=== PATIENT | male | born 1980 | race Caucasian/White ===

== ENCOUNTER 2018-06-25 00:31 | Emergency (ER) | payer SELFPAY ==
[2018-06-25] MEDS ORDERED: HALOPERIDOL LACTATE INJ 5 MG/1 ML VIAL ONE (01:32)
[2018-06-25] MEDS ORDERED: LORAZEPAM INJ 2 MG/1 ML VIAL ONE (01:33)
[2018-06-25] MEDS ORDERED: DIPHENHYDRAMINE HCL 50 MG/ML VIAL ONE (01:33)
[2018-06-25] MEDS ORDERED: DIPHENHYDRAMINE HCL 50 MG/ML VIAL IM ONE (01:40)
[2018-06-25] MEDS ORDERED: LORAZEPAM INJ 2 MG/1 ML VIAL IM ONE (01:41)
[2018-06-25] MEDS ORDERED: HALOPERIDOL LACTATE INJ 5 MG/1 ML VIAL IM ONE (01:41)
--- NOTE | 2018-06-25 01:55 | ER Document Report ---
Addendum entered and electronically signed by BRODERICK OSCAR MD 06/25/18 16:07: Discharge - Discharge Clinical Impression: Alcohol abuse, Suicidal ideations, Deliberate self-cutting Condition: Fair Disposition: HOME, SELF-CARE Additional Instructions: You have been evaluated and assessed at [facility] Emergency Department by both the medical and behavioral health teams after presenting for suicide and are now deemed appropriate for discharge. While in the ED, you received an initial medical screening, lab work, EKG, medications, direct staff observation, clinical evaluation, physician assessment, and outpatient resources. You were cleared from both services Mobile crisis resources were provided to you for when these situations arise. You are encouraged to develop positive coping skills through outpatient counseling and to stop using drugs and alcohol. A list of local substance abuse counselors were provide to you. You are also encouraged to follow up with your outpatient mental health provider at the [place] this Tuesday06/29/18 and maintain compliance with your prescribed medication. DEPRESSION: Your evaluation reveals that you have mental depression. While symptoms may be vague, they often include disturbance of sleep, fatigue, loss of appetite, and general loss of interest in life. While depression may be a side effect of drugs, or a reaction to a major change in your life, many cases have no known cause. If depression is acute, and related to a major loss in your life, you can expect it to clear completely with time. If you have been depressed a long time, are prone to repeated bouts of depression or low mood, or have been thinking of suicide, get help. Depression can be treated with anti-depressant medication and counselling. Long-term depression will often take a few weeks to clear, even with appropriate medication. Follow-up care is important. SUICIDAL IDEATION: Suicidal ideation is a common medical term for thoughts about suicide, which may be as detailed as a formulated plan, without the suicidal act itself. Although most people who undergo suicidal ideation do not commit suicide, some go on to make suicide attempts. The range of suicidal ideation varies greatly from fleeting to detailed planning, role playing, and unsuccessful attempts. While thoughts about suicide are common, most people do not carry out serious actions to commit suicide. Based upon your evaluation and discussion with you, we do not believe you are currently at risk to act upon your thoughts of suicide. You have agreed to return to the Emergency Department, at any time, if you feel inclined to act upon your suicidal thoughts. FOLLOW-UP CARE: If you have been referred to a physician for follow-up care, call the physicians office for an appointment as you were instructed or within the next two days. If you experience worsening or a significant change in your symptoms, notify the physician immediately or return to the Emergency Department at any time for re-evaluation. Referrals: [facility] [Provider Group] - Follow up as needed [facility] [Provider Group] - Follow up as needed Addendum entered and electronically signed by BRODERICK OSCAR MD 06/25/18 16:04: Discharge - Discharge Clinical Impression: Alcohol abuse, Suicidal ideations, Deliberate self-cutting Condition: Fair Original Note: ED General - General TRAVEL OUTSIDE OF THE [place] IN LAST 30 DAYS: No <DORY RAMIRES - Last Filed: 06/25/18 03:43> <BRODERICK OSCAR - Last Filed: 06/25/18 15:47> - General Chief Complaint: Suicidal Ideation Stated Complaint: SUICIDAL THOUGHTS Time Seen by Provider: 06/25/18 00:39 Notes: Patient is a 37-year-old male with history of depression, anxiety and PTSD that presents to the emergency department for chief complaint of suicidal ideation. EMS was called by the patient's , patient was locked into the house, he was intoxicated, and he had cut his wrist, this is the third attempt according to EMS that the patient has had recently, and he goes to the [place] apparently, and states that the not helping him. At this time however the patient is rather agitated, he was brought in by police, and is not wanting to cooperate, saying expletives, and states that we will not be able to help him, and is combative with police officers and security. Past Medical History: PTSD, depression, anxiety Past Surgical History: Not obtainable at this time Social History: Positive for alcohol use and tobacco use. Family History: Reviewed and noncontributory for presenting illness Allergies: Reviewed, see documented allergy list. REVIEW OF SYSTEMS: Complete review of systems is not obtainable at this time as the patient is rather combative and not wanting to answer questions PHYSICAL EXAMINATION: Vital signs reviewed, nursing noted reviewed. GENERAL: Patient is intoxicated and combative with security and staff HEAD: Atraumatic, normocephalic. EYES: Eyes appear normal, sclera anicteric, conjunctiva are normal. ENT: Moist mucous membranes. NECK: Normal range of motion, supple without lymphadenopathy LUNGS: Breath sounds clear to auscultation bilaterally and equal. No wheezes rales or rhonchi. HEART: Heart rate tachycardic, regular rhythm EXTREMITIES: Nontender, good range of motion, no pitting or edema. There are superficial lacerations noted to the wrist bilaterally. NEUROLOGICAL: No focal neurological deficits. Moves all extremities spon taneously Motor and sensory grossly intact on exam. Ambulatory PSYCH: Patient is agitated and combative with staff SKIN: Warm, Dry, normal turgor, (DORY RAMIRES) - Related Data Allergies/Adverse Reactions: No Known Allergies Allergy (Unverified 06/25/18 02:12) Past Medical History - Social History Smoking Status: Unknown if Ever Smoked Family History: Reviewed & Not Pertinent <BRODERICK OSCAR - Last Filed: 06/25/18 15:47> - Vital signs Vitals: Pulse Resp BP Pulse Ox 103 H 20 137/88 H 97 06/25/18 00:35 06/25/18 00:35 06/25/18 00:35 06/25/18 00:35 Course - Laboratory Result Diagrams: 06/25/18 01:50 06/25/18 01:50 <DORY RAMIRES - Last Filed: 06/25/18 03:43> - Laboratory Result Diagrams: 06/25/18 01:50 06/25/18 06:45 <BRODERICK OSCAR - Last Filed: 06/25/18 15:47> - Re-evaluation Re-evalutation: Patient was seen and examined, was combative with police officers and staff in the hospital, IVC paperwork was filled out as the patient did have intentional lacerations to his wrist, and apparently per EMS made suicidal threats, patient had to be restrained, and was given IM Haldol 5 mg, IM Ativan 2 mg, and IM Benadryl 50 mg. Patient was more calm after medications, blood work was obtained, demonstrated a bicarb of 10, and alcohol of 197, low bicarb and metabolic acidosis most likely secondary to the patient being violent and wrestled by multiple officers and staff, leading to intermittent lactic acidosis, will hydrate the patient and repeat this in the morning, cannot medically clear at this time. Patient was reevaluated, and was resting and sleeping, will attempt to slowly remove restraints wanted to time to see if the patient will remain cooperative. (DORY RAMIRES) - Vital Signs Vital signs: Temp Pulse Resp BP Pulse Ox 103 H 20 137/88 H 97 06/25/18 00:35 06/25/18 00:35 06/25/18 00:35 06/25/18 00:35 - Laboratory Laboratory results interpreted by me: 06/25/18 06/25/18 01:50 06:45 Chloride 111 H 113 H Carbon Dioxide 10 L* 20 L D Anion Gap 24 H Total Protein 8.8 H Albumin 5.2 H Salicylates < 1.0 L Acetaminophen < 10 L Discharge <DORY RAMIRES - Last Filed: 06/25/18 03:43> <BRODERICK OSCAR - Last Filed: 06/25/18 15:47> - Discharge Clinical Impression: Alcohol abuse, Suicidal ideations, Deliberate self-cutting Condition: Fair
[2018-06-25 02:04] LABS: ABSOLUTE BASOPHILS # (AUTO) 0.1 10^3/uL (0.0-0.2); ABSOLUTE EOSINOPHILS # (AUTO) 0.3 10^3/uL (0.0-0.6); ABSOLUTE LYMPHOCYTES (AUTO) 2.9 10^3/uL (0.5-4.7); ABSOLUTE MONOCYTES (AUTO) 0.5 10^3/uL (0.1-1.4); ABSOLUTE NEUT (AUTO) 6.2 10^3/uL (1.7-8.2); BASOPHILS % (AUTO) 1.2 % (0-2); EOSINOPHILS % (AUTO) 3.3 % (0-6); HEMATOCRIT 46.4 % (37.9-51.0); HEMOGLOBIN 16.1 g/dL (13.5-17.0); LYMPHOCYTES % (AUTO) 28.7 % (13-45); MEAN CORPUSCULAR HEMOGLOBIN 31.5 pg (27.0-33.4); MEAN CORPUSCULAR HGB CONC 34.6 g/dL (32.0-36.0); MEAN CORPUSCULAR VOLUME 91 fl (80-97); MONOCYTES % (AUTO) 5.1 % (3-13); PLATELET COUNT 231 10^3/uL (150-450); RED CELL DISTRIBUTION WIDTH 13.5 % (11.5-14.0); SEGMENTED NEUTROPHILS % (AUTO) 61.7 % (42-78); TOTAL CELLS COUNTED % (AUTO) 100 %
[2018-06-25 02:16] LABS: ALANINE AMINOTRANSFERASE 48 U/L (21-72); ALBUMIN 5.2 g/dL (3.5-5.0); ALCOHOL 197 mg/dL (NONE DETECTED); ALKALINE PHOSPHATASE 117 U/L (38-126); ASPARTATE AMINO TRANSFERASE 45 U/L (17-59); BILIRUBIN,DIRECT 0.3 mg/dL (0.0-0.4); BILIRUBIN,TOTAL 0.4 mg/dL (0.2-1.3); BLOOD UREA NITROGEN 13 mg/dL (7-20); CALCIUM 9.8 mg/dL (8.4-10.2); GLUCOSE 108 mg/dL (75-110); POTASSIUM 4.4 mmol/L (3.6-5.0); TOTAL PROTEIN 8.8 g/dL (6.3-8.2)
[2018-06-25 02:21] LABS: ACETAMINOPHEN < 10 ug/mL (10-30); CHLORIDE 111 mmol/L (98-107); SALICYLATE < 1.0 mg/dL (2.0-20.0); SODIUM 144.5 mmol/L (137-145)
[2018-06-25 02:23] LABS: ANION GAP 24 (5-19); CARBON DIOXIDE 10 mmol/L (22-30)
[2018-06-25] MEDS ORDERED: NORMAL SALINE 1000 ML 1,000 ML IV ONE ×2 (02:25→03:43)
[2018-06-25 07:18] LABS: ANION GAP 10 (5-19); BLOOD UREA NITROGEN 13 mg/dL (7-20); CALCIUM 8.5 mg/dL (8.4-10.2); CHLORIDE 113 mmol/L (98-107); GLUCOSE 97 mg/dL (75-110); POTASSIUM 4.6 mmol/L (3.6-5.0); SODIUM 142.9 mmol/L (137-145)
[2018-06-25 07:33] LABS: CARBON DIOXIDE 20 mmol/L (22-30)
--- NOTE | 2018-06-25 08:34 | EKG REPORT ---
SEVERITY:- NORMAL ECG - SINUS RHYTHM ST ELEV, PROBABLE NORMAL EARLY REPOL PATTERN : Confirmed by: Oswald Pedraza MD 25-Jun-2018 08:33:41
--- NOTE | 2018-06-25 08:34 | EKG REPORT ---
SEVERITY:- ABNORMAL ECG - SINUS RHYTHM PROBABLE INFERIOR INFARCT, AGE INDETERMINATE : Confirmed by: Oswald Pedraza MD 25-Jun-2018 08:33:26
--- NOTE | 2018-06-25 09:19 | ER Document Report ---
Addendum entered and electronically signed by TOÑA TORRES LPCA 06/25/18 16:03: Discharge - Discharge Clinical Impression: Alcohol abuse, Suicidal ideations, Deliberate self-cutting Disposition: HOME, SELF-CARE Additional Instructions: You have been evaluated and assessed at [facility] Emergency Department by both the medical and behavioral health teams after presenting for suicide and are now deemed appropriate for discharge. While in the ED, you received an initial medical screening, lab work, EKG, medications, direct staff observation, clinical evaluation, physician assessment, and outpatient resources. You were cleared from both services Mobile crisis resources were provided to you for when these situations arise. You are encouraged to develop positive coping skills through outpatient counseling and to stop using drugs and alcohol. A list of local substance abuse counselors were provide to you. You are also encouraged to follow up with your outpatient mental health provider at the [place] this Tuesday06/29/18 and maintain compliance with your prescribed medication. DEPRESSION: Your evaluation reveals that you have mental depression. While symptoms may be vague, they often include disturbance of sleep, fatigue, loss of appetite, and general loss of interest in life. While depression may be a side effect of drugs, or a reaction to a major change in your life, many cases have no known cause. If depression is acute, and related to a major loss in your life, you can expect it to clear completely with time. If you have been depressed a long time, are prone to repeated bouts of depression or low mood, or have been thinking of suicide, get help. Depression can be treated with anti-depressant medication and counselling. Long-term depression will often take a few weeks to clear, even with appropriate medication. Follow-up care is important. SUICIDAL IDEATION: Suicidal ideation is a common medical term for thoughts about suicide, which may be as detailed as a formulated plan, without the suicidal act itself. Although most people who undergo suicidal ideation do not commit suicide, some go on to make suicide attempts. The range of suicidal ideation varies greatly from fleeting to detailed planning, role playing, and unsuccessful attempts. While thoughts about suicide are common, most people do not carry out serious actions to commit suicide. Based upon your evaluation and discussion with you, we do not believe you are currently at risk to act upon your thoughts of suicide. You have agreed to return to the Emergency Department, at any time, if you feel inclined to act upon your suicidal thoughts. FOLLOW-UP CARE: If you have been referred to a physician for follow-up care, call the physicians office for an appointment as you were instructed or within the next two days. If you experience worsening or a significant change in your symptoms, notify the physician immediately or return to the Emergency Department at any time for re-evaluation. Referrals: [facility] [Provider Group] - Follow up as needed [facility] [Provider Group] - Follow up as needed Course - Vital Signs Vital signs: Temp Pulse Resp BP Pulse Ox 103 H 20 137/88 H 97 06/25/18 00:35 06/25/18 00:35 06/25/18 00:35 06/25/18 00:35 - Laboratory Result Diagrams: 06/25/18 01:50 06/25/18 06:45 Laboratory results interpreted by me: 06/25/18 06/25/18 01:50 06:45 Chloride 111 H 113 H Carbon Dioxide 10 L* 20 L D Anion Gap 24 H Total Protein 8.8 H Albumin 5.2 H Salicylates < 1.0 L Acetaminophen < 10 L Physical Exam - Vital signs Vitals: Pulse Resp BP Pulse Ox 103 H 20 137/88 H 97 06/25/18 00:35 06/25/18 00:35 06/25/18 00:35 06/25/18 00:35 Original Note: Doctor's Note Notes: 06/25/18 09:17 37-year-old male with past medical history of depression, anxiety, posttraumatic stress disorder, with suicidal ideations, alcohol intoxication, cutting his wrist. Patient was partially very aggravated and needed to be restrained by police last evening. Vital signs as recorded. Labs as recorded. Awaiting psych evaluation. 06/25/18 15:45 The psychology/psychiatry team is seen and assessed the patient. They do not believe that the patient is a threat to himself or others at this time. Patient has been taking all his medications. Alcohol level when he arrived as recorded. He denies any suicidal homicidal ideations at this time. He denies any auditory or visual hallucinations. We have called and contacted his who states that the patient knows he should not be drinking. The patient also admits he should not be drinking. He will attempt to abstain. Patient has an appointment this Tuesday with his psychologist at the [place]. The is very comfortable with the patient going home. The patient is desiring going home. We have cleaned and dressed the patient's superficial abrasion to his left wrist. The states that she is the only one with a costa to the guns.
[2018-06-25 13:30] LABS: APPEARANCE,URINE TURBID; BILIRUBIN,URINE NEGATIVE (NEGATIVE); COLOR,URINE AMBER; GLUCOSE, URINE NEGATIVE (NEGATIVE); KETONES,URINE NEGATIVE (NEGATIVE); LEUKOCYTE ESTERASE,URINE NEGATIVE (NEGATIVE); NITRITE,URINE NEGATIVE (NEGATIVE); PROTEIN,URINE NEGATIVE (NEGATIVE); URINE SPECIFIC GRAVITY 1.019; UROBILINOGEN,URINE NEGATIVE mg/dL (<2.0)
[2018-06-25 13:40] LABS: URINE AMPHETAMINES SCREEN UNCONFIRMED POSITIVE; URINE BARBITURATES SCREEN NEGATIVE; URINE BENZODIAZEPINES SCREEN NEGATIVE; URINE COCAINE SCREEN NEGATIVE; URINE MARIJUANA (THC) SCREEN UNCONFIRMED POSITIVE; URINE METHADONE SCREEN NEGATIVE; URINE PHENCYCLIDINE SCREEN NEGATIVE
--- NOTE | 2018-06-25 16:02 | PSYCHOLOGICAL NOTE ---
Psych Note - Psych Note Date seen by psych provider: 06/25/18 Time seen by psych provider: 08:00 Psych Note: Reason for consult: Contact Permissions: Patient is a 37-year-old male with history of depression, anxiety and PTSD that presents to the emergency department for chief complaint of suicidal ideation. EMS was called by the patient's , patient was locked into the house, he was intoxicated, and he had cut his wrist, this is the third attempt according to E MS Calista Prince, He drank too much and doesn't handle his alcohol well. 4-5 glasses of wine at the event. Did not argue to her recollection I drank too much. Got up to get the dogs on front porch with a bottle of liquor crown maybe. tried to take the bottle. he said they'll be here soon. 2011 pills. He was cut. She didn't call award clerk but they arrived. Chip Applying Machine Tender lost him. No statements to kill self at all "this was a surprise" Patient is alert and oriented x . Mood is with affect. Patient denies/endorses SI, HI, and AV/H, does not appear to be responding to internal stimuli, and no delusions were noted. Conversational speech was WNL for rate, tone, and prosody. Eye contact was maintained. Thought processes were linear, organized, and rational. Intellectual abilities were estimated within the average range. Attention/concentration was WNL while, insight, judgment, and impulse control were . Diagnosis: Medication recommendations as per psychiatric provider, Dr. Chopra are as follows: No medication recommendations at this time. Impression/Plan: Patient is psychiatrically clear from acute psychiatric services as there is no risk of harm to self or others aeb patient denies SI, states he just drank too much and called [facility] for help. Patient and recommended to follow up with his MH provider Dr. Whiteside at the [place] on Tuesday for his regularly scheduled appointment. Patient is recommended to engage in S/A treatment as well, and was given education and contact information for [facility]. Patient's keeps the guns locked and has the only costa, will provide additional monitoring and support and ensure that patient follows up with his provider. Consulted Dr. Alves in the care and treatment of this patient and ED physician who is in agreement with disposition and recommendation.
[2018-06-25 16:14] VITALS: BP 127/78
== END 2018-06-25 16:13 | disposition home or self-care (01) ==
LOC: ER 00:31
DX: S61.519A Laceration without foreign body of unspecified wrist, initial encounter (principal); F10.10 Alcohol abuse, uncomplicated; X78.9XXA Intentional self-harm by unspecified sharp object, initial encounter; Y92.009 Unspecified place in unspecified non-institutional (private) residence as the place of occurrence of the external cause; F17.200 Nicotine dependence, unspecified, uncomplicated
CPT/HCPCS: 93005; 99285; 96372; 96360; 36415; 80307 ×4; 85025; 80048; 80053; 81001; 93010; J1200; J1630; J2060; J7030

== ENCOUNTER 2018-08-10 12:20 | Emergency (ER) | payer OTHER ==
--- NOTE | 2018-08-10 14:40 | ER Document Report ---
ED Skin Rash/Insect Bite/Abscs - General Chief Complaint: Abscess Stated Complaint: POSSIBLE ABSCESS Time Seen by Provider: 08/10/18 14:28 Mode of Arrival: Ambulatory Information source: Patient TRAVEL OUTSIDE OF THE [place] IN LAST 30 DAYS: No - HPI Patient complains to provider of: Other - CYST Notes: Patient here with complaints of cyst to his back. He has had a cyst to his upper back since January. He saw the [facility] for this and they did nothing for it at that time. Few days ago it was somewhat sore and he was able to express some white material from it. He denies any pain today. He talked to the [facility] about this and he was and told to have that reevaluated. No fever. No pain. No drainage at this time. No nausea, vomiting, diarrhea. No redness. No chest pain or shortness of breath. No nausea, vomiting, diarrhea. No diabetes. He denies any other complaints at this time. - Related Data Allergies/Adverse Reactions: No Known Allergies Allergy (Verified 08/10/18 14:06) Past Medical History - Social History Smoking Status: Current Every Day Smoker Frequency of alcohol use: Social Drug Abuse: None Family History: Reviewed & Not Pertinent Patient has suicidal ideation: No Patient has homicidal ideation: No Renal/ Medical History: Denies: Hx Peritoneal Dialysis Psychiatric Medical History: Reports: Hx Depression Past Surgical History: Reports: Hx Orthopedic Surgery - right hand Review of Systems - Review of Systems -: Yes All other systems reviewed and negative Physical Exam - Vital signs Vitals: Temp Pulse Resp BP Pulse Ox 97.9 F 72 18 144/88 H 95 08/10/18 12:43 08/10/18 12:43 08/10/18 12:43 08/10/18 12:43 08/10/18 12:43 - Notes Notes: GENERAL: alert, cooperative, nontoxic, no distress. HEAD: normocephalic, atraumatic EYES: conjunctiva pink without discharge, no external redness or swelling. EARS: no external swelling, no external redness NOSE: atraumatic, no external swelling MOUTH/THROAT: mucous membranes moist and pink NECK: soft, supple, full range of motion, no meningismus. CHEST: no distress, lungs clear and equal throughout. No wheezing, rales, rhonchi. CARDIAC: regular rate and rhythm, no murmur, normal capillary refill, normal pulses. BACK: full range of motion, no CVA tenderness. EXTREMITIES: full range of motion of all extremities. No redness, no swelling. NEURO: alert and oriented 3, no focal deficits, full range of motion of all extremities. PYSCH: appropriate mood, affect. Patient is cooperative. SKIN: pink, warm, dry, no rash. Small sebaceous cyst to the upper back. There is a small opening and a small amount of white caseous material was able to be expressed from this area. It is nontender, there is no surrounding redness. Course - Re-evaluation Re-evalutation: 08/10/18 14:37 Patient nontoxic-appearing with stable vitals. Patient here with complaints of cyst to his upper back that is been there since January. A few days ago get slightly tender he was able to express some white smelly material from it. On exam he is noted to have a sebaceous cyst with a small hole. I was able to gently express a small amount of white caseous cystic material from the area. There is no surrounding redness, cyst nontender, there is no obvious signs of infection at this time. This point I do not believe that an I&D would be indicated as the patient will likely need to follow-up with surgery or dermatology to have the actual cyst removed if it is bothering him. We will discharge him home on Keflex since there is a small opening to the area to hopefully prevent infection. He was instructed to apply warm compresses to the sore area. Follow-up with primary care, general surgery, dermatology at the next available appointment. Follow-up sooner for worsening pain, fever, redness, pain, persistent vomiting, or for any further concerns. The patient's emergency department workup and current diagnosis were explained to the patient and or family. Follow-up instructions were provided. Medications if prescribed were discussed. Instructions for when to return to the emergency department including specific worrisome symptoms were discussed with the patient and/or family. - Vital Signs Vital signs: Temp Pulse Resp BP Pulse Ox 97.9 F 72 18 144/88 H 95 08/10/18 12:43 08/10/18 12:43 08/10/18 12:43 08/10/18 12:43 08/10/18 12:43 Discharge - Discharge Clinical Impression: Sebaceous cyst Condition: Stable Disposition: HOME, SELF-CARE Instructions: Abscess ([facility]) Additional Instructions: Take medication as prescribed. Tylenol Motrin as needed for pain. Apply warm compresses to the sore area. Follow-up with dermatology or surgery for potential removal of the sebaceous cyst. Follow-up sooner for worsening pain, fever, redness, green drainage, or any further concerns. Prescriptions: Cephalexin Monohydrate [Keflex 500 mg Capsule] 500 mg PO Q6H 5 Days capsule Forms: Elevated Blood Pressure, Smoking Cessation Education Referrals: JORDEN GORDON DO [ACTIVE STAFF] - Follow up as needed SYLVAIN CALHOUN MD [ACTIVE PROVISIONAL STAFF] - Follow up as needed MIRLANDE FERNANDES MD [ACTIVE STAFF] - Follow up as needed
[2018-08-10 14:47] VITALS: BP 136/84
== END 2018-08-10 14:44 | disposition home or self-care (01) ==
LOC: ER 12:20
DX: L72.3 Sebaceous cyst (principal); F17.200 Nicotine dependence, unspecified, uncomplicated
CPT/HCPCS: 99282